=== PATIENT | male | born 1965 | race Hispanic/Latino ===

== ENCOUNTER 2017-04-10 15:42 | Emergency (ER) | payer BC, OTHER ==
[2017-04-10 15:42] VITALS: BMI 27.1
[2017-04-10 15:53] VITALS: BP 161/97; PULSE 102; RESP 16; TEMP 98.6; O2SAT 99
--- NOTE | 2017-04-10 16:25 | ED PDOC ---
HPI:STROKE - Time Time: 16:21 - Historian Historian: Patient - Chief Complaint Chief Complaint: Numbness, Facial droop - Onset Date: 04/10/17 Time: 12:30 Onset: Hours (4) - Timing Timing: Resolved - Location Locate left: Face - Radiation Radiation: None - Severity of pain Maximum severity:: Mild Pain Scale:: 0 Severity Current: None Pain Scale:: 0 - TPA Positive for Contraindication: Yes Reason tPA is not being Administered: Sxs resolved - Notes: Notes:: Referred by PMD and dentist after pt experienced left upper lift numbness after receiving Lidocaine injection prior to dental procedure. Dentist concerned over facial asymetry. Pt denies other sxs including arm/leg numbness or weakness. denies headache or blurry vision. Pt asymptomatic with complete resolution of sxs on arrival to ED. NIHSS Stroke Scale - How Severe is the Stroke Level of Consciousness: 0=Alert LOC to Questions: 0=Both comments correct LOC to commands: 0=Obeys both correctly Best Gaze: 0=Normal Visual: 0=No visual loss Facial: 0=Normal Motor Arm - Left: 0=No drift Motor Arm - Right: 0=No drift Motor Leg - Left: 0=No drift Motor Leg - Right: 0=No drift Limb Ataxia: 0=Absent Sensory: 0=Normal Best Language: 0=No aphasia Dysarthia: 0=Normal articulation Extinction & Inattention (Neglect): 0=Normal, no object Score: 0 rTPA Inclusion/Exclusion - Refusal of Treatment Patient Refused Treatment: No - Inclusion Criteria for Altepase Patient is 18 years or Older: Yes The Clinical Diagnosis of Ischemic Stroke That is Causing a Potentially Disabling Neurological Deficit: No Time of Onset is Well Established to be Less Than 270 Minute Before Treatment Would Begin: No Risk/Benefit Discussed With Patient/Family Member Present: No Past Medical History Vital Signs: Last Vital Signs Temp 98.6 F 04/10/17 15:47 Pulse 102 H 04/10/17 15:47 Resp 16 04/10/17 15:47 BP 161/97 H 04/10/17 15:47 Pulse Ox 99 04/10/17 15:47 - Medical History Other PMH: CVID - Family History Family History: States: Unknown Family Hx - Allergies Allergies/Adverse Reactions: Allergies Allergy/AdvReac Type Severity Reaction Status Date / Time No Known Allergies Allergy Verified 04/10/17 15:47 Review of Systems ROS Statement: Except As Marked, All Systems Reviewed And Found Negative Neurological: Positive for: Numbness Physical Exam - Reviewed Nursing Documentation Reviewed: Yes Vital Signs Reviewed: Yes - Physical Exam Appears: Positive for: Non-toxic, No Acute Distress Head Exam: Positive for: ATRAUMATIC, NORMAL INSPECTION, NORMOCEPHALIC Skin: Positive for: Normal Color, Warm, DRY Eye Exam: Positive for: EOMI, Normal appearance, PERRL ENT: Positive for: Normal ENT Inspection Neck: Positive for: Normal, Painless ROM Cardiovascular/Chest: Positive for: Regular Rate, Rhythm Respiratory: Positive for: CNT, Normal Breath Sounds Gastrointestinal/Abdominal: Positive for: Normal Exam, Bowel Sounds, Soft Back: Positive for: Normal Inspection Extremity: Positive for: Normal ROM Neurologic/Psych: Positive for: Alert, Oriented. Negative for: Motor/Sensory Deficits, Facial Droop - ECG O2 Sat by Pulse Oximetry: 99 Medical Decision Making Medical Decision Making: Discussed with Dr. Medina. Given complete resolution of sxs with sxs occuring after injection of local anesthetic, most likely peripheral vs central etiology. Will DC and have pt f/u with Dr. medina tomorrow. Disposition - Clinical Impression Clinical Impression: Peripheral neuropathy - Patient ED Disposition Is Patient to be Admitted: No Counseled Patient/Family Regarding: Studies Performed, Diagnosis, Need For Followup - Disposition Referrals: Albert Medina MD [Family Provider] - Disposition: Routine/Home Disposition Time: 17:19 Condition: FAIR Instructions: Peripheral Neuropathy (ED) Forms: [employer] ([place])
--- NOTE | 2017-04-10 17:10 | CT ---
PROCEDURE: CT HEAD WITHOUT CONTRAST. HISTORY: r/o bleed COMPARISON: None available. TECHNIQUE: Axial computed tomography images were obtained through the head/brain without intravenous contrast. Radiation dose: Total exam DLP = 886.04 mGy-cm. This CT exam was performed using one or more of the following dose reduction techniques: Automated exposure control, adjustment of the mA and/or kV according to patient size, and/or use of iterative reconstruction technique. FINDINGS: HEMORRHAGE: No intracranial hemorrhage. BRAIN: No mass effect or edema. The holloway-white matter differentiation appears intact. Please note that MRI with diffusion imaging is more sensitive in the detection of acute ischemic event. VENTRICLES: No hydrocephalus. CALVARIUM: Unremarkable. PARANASAL SINUSES: Unremarkable as visualized. No significant inflammatory changes. MASTOID AIR CELLS: Unremarkable as visualized. No inflammatory changes. OTHER FINDINGS: None. IMPRESSION: No acute intracranial pathology identified.
== END 2017-04-10 17:39 | disposition home or self-care (01) ==
LOC: H.ER 15:42
DX: G62.9 Polyneuropathy, unspecified (principal)